=== PATIENT | female | born 1995 | race Caucasian/White ===

== ENCOUNTER → 2018-09-06 | Outpatient (CLI) | payer OTHER ==
--- NOTE | 2018-09-06 14:27 | REP ---
Left knee five views: There are no comparisons. The patient has had anterior cruciate graft procedure . There is an interference screw in the distal femur. There is no fracture or dislocation. There is no effusion. The joint spaces are unremarkable. There are no calcifications or foreign bodies. Impression: Postsurgical changes compatible with anterior cruciate graft. Otherwise, negative plain film study of the left knee. Electronically Signed by Harrison Jolley MD 09/06/2018 02:18 P
== END ==
LOC: M WUC 13:54
PROVIDERS: ATTEND Physician Assistant
DX: M25.562 Pain in left knee (principal); Z98.890 Other specified postprocedural states